=== PATIENT | male | born 1960 | race Caucasian/White ===

== ENCOUNTER 2017-07-18 10:42 | Inpatient (IN) | payer OTHER ==
[2017-07-18 10:56] VITALS: RESP 18
[2017-07-18] MEDS ORDERED: ONDANSETRON 4 MG/2 ML VIAL IVP STA (11:35)
[2017-07-18] MEDS ORDERED: PANTOPRAZOLE 40 MG/10 ML VIAL IVP STA (11:35)
[2017-07-18] MEDS ORDERED: SODIUM CHLORIDE 0.9% 500 ML IV STA (11:35)
--- NOTE | 2017-07-18 11:46 | ED ---
General Adult HPI - General Chief complaint: Abdominal Pain Stated complaint: abdominal pain, cold sweats, diarrhea Time Seen by Provider: 07/18/17 11:09 Source: patient, family, RN notes reviewed Mode of arrival: ambulatory Limitations: no limitations - History of Present Illness Initial comments: If complaint history of present illness this is a 57-year-old male to complaint of epigastric discomfort started several hours ago. Review worse. It goes from his stomach toward the back. Patient also has chronic back pain. Denies nausea vomiting or diarrhea. He did have 3 alcoholic drinks last night. Denies ever having had pancreatitis in the past. Denies past history of kidney stones. Denies chest pain. - Related Data Allergies Allergy/AdvReac Type Severity Reaction Status Date / Time No Known Allergies Allergy Verified 07/18/17 12:34 Review of Systems ROS Statement: Those systems with pertinent positive or pertinent negative responses have been documented in the HPI. review of systems no headache or visual acuity changes denies any chest pain or shortness of breath. He has epigastric pain. No nausea no vomiting no diarrhea. No neuro deficits. Past medical problems , Hcp-[id number] diabetes mellitus. Hypertension. No surgeries. Family history no cancers. Patient denies ALLERGIES. He does smoke and is encouraged to stop drink alcohol. He had 3 beers last night. ROS Other: All systems not noted in ROS Statement are negative. Past Medical History Past Medical History: Diabetes Mellitus, Hypertension History of Any Multi-Drug Resistant Organisms: None Reported Past Surgical History: No Surgical Hx Reported Past Psychological History: No Psychological Hx Reported Smoking Status: Current every day smoker Past Alcohol Use History: Occasional Past Drug Use History: None Reported General Exam - General Exam Comments Initial Comments: General: The patient is awake and alert,complaining of epigastric pain ongoing for several hours. No nausea ,no vomiting, no diarrhea. Eye: Pupils are equal, extra-ocular movements are intact; there is normal conjunctiva bilaterally. No signs of icterus. Ears, nose, mouth and throat: There are moist mucous membranes ns. Neck: The neck is supple, there is no tenderness . Cardiovascular: There is a regular rate and rhythm. No murmur, rub or gallop is appreciated. Respiratory: Lungs are clear to auscultation, respirations are non-labored, breath sounds are equal. No wheezes, stridor, rales, or rhonchi. Gastrointestinal: patient complains of epigastric area discomfort. No pain with deep palpation all around the abdomen mild discomfort with palpation of the epigastrium. No rebound or referred pain no guarding. Back: chronic low back pain, Musculoskeletal: no complaint of upper or lower extremity discomfort pain or problems. Neurological: no complaint of any neuro deficits none noted. Patient moved around without difficulty. Skin: no skin rashes Limitations: no limitations Course Vital Signs 07/18/17 10:53 Temperature 97.0 F L Pulse Rate 84 Respiratory 18 Rate Blood Pressure 133/64 O2 Sat by Pulse 98 Oximetry EKG Findings - EKG Comments: EKG Findings:: EKG was done and reviewed at 1135 showing sinus rhythm no acute ST elevation no ectopy no ischemic changes. Rate 67. Eye was 184 QRS [address] Pandey Medical Decision Making - Medical Decision Making Medical decision making; patient's here because of epigastric pain getting progressively worse over the past several hours. No nausea no vomiting or diarrhea. Labs show white count 16 hemoglobin 15 hematocrit of 47. INR 1.0.BUN 16 creatinine 0.8 GFR greater than 60. INR 1.0. Glucose 181. Amylase lipase within normal limits. X-ray of the abdomen was done and reviewed by radiologist his findings are there mildly distended loops of gaseous filled small bowel in the mid abdomen. There are multiple air-fluid levels. There are phleboliths within the pelvis. No free air is seen. Impression small bowel ileus versus early small bowel obstruction. As read by Dr. Kurtz After 1/2 L of fluids and medications patient still having cramping abdominal pain. The patient will have a CT the abdomen IV and oral contrast. CT the abdomen was done and reviewed by radiologist his final impression is clots in the left side of the colon making assessment of the bowel wall difficult. Correlate clinically to exclude colitis. Also abnormal small bowel loops in the mid to lower abdomen with adjacent mesenteric inflammation. No evidence of volvulus . ischemic changes possible. Also small metal hernia. Cholelithiasis. Renal cystic disease. Bilateral lysis at L5 with grade 1 spondylolisthesis of L5 on S1. Degenerative changes of his spine. As read by Dr. Kurtz Patient continues to have bilateral cramping. Patient be admitted to Dr. Campo with GI consultation. - Lab Data Result diagrams: 07/18/17 11:51 07/18/17 11:51 Lab Results 07/18/17 07/18/17 07/18/17 Range/Units 11:51 11:51 11:51 WBC 16.0 H (3.8-10.6) k/uL RBC 5.28 (4.30-5.90) m/uL Hgb 15.2 (13.0-17.5) gm/dL Hct 47.3 (39.0-53.0) % MCV 89.7 (80.0-100.0) fL MCH 28.9 (25.0-35.0) pg MCHC 32.2 (31.0-37.0) g/dL RDW 13.0 (11.5-15.5) % Plt Count 349 (150-450) k/uL Neutrophils % 83 % Lymphocytes % 10 % Monocytes % 4 % Eosinophils % 1 % Basophils % 1 % Neutrophils # 13.3 H (1.3-7.7) k/uL Lymphocytes # 1.7 (1.0-4.8) k/uL Monocytes # 0.6 (0-1.0) k/uL Eosinophils # 0.2 (0-0.7) k/uL Basophils # 0.1 (0-0.2) k/uL PT (9.0-12.0) sec INR (<1.2) Sodium 139 (137-145) mmol/L Potassium 4.8 (3.5-5.1) mmol/L Chloride 101 (98-107) mmol/L Carbon Dioxide 25 (22-30) mmol/L Anion Gap 13 mmol/L BUN 16 (9-20) mg/dL Creatinine 0.80 (0.66-1.25) mg/dL Est GFR (MDRD) Af Amer >60 (>60 ml/min/1.73 sqM) Est GFR (MDRD) Non-Af >60 (>60 ml/min/1.73 sqM) Glucose 181 H (74-99) mg/dL Plasma Lactic Acid Luis (0.7-2.0) mmol/L Calcium 10.0 (8.4-10.2) mg/dL Total Bilirubin 0.7 (0.2-1.3) mg/dL AST 27 (17-59) U/L ALT 45 (21-72) U/L Alkaline Phosphatase 118 (38-126) U/L Total Creatine Kinase 140 (55-170) U/L CK-MB (CK-2) 0.8 (0.0-2.4) ng/mL CK-MB (CK-2) Rel Index 0.6 Troponin I <0.012 (0.000-0.034) ng/mL Total Protein 8.1 (6.3-8.2) g/dL Albumin 4.7 (3.5-5.0) g/dL Amylase 55 (30-110) U/L Lipase 202 (23-300) U/L Urine Color Urine Appearance (Clear) Urine pH (5.0-8.0) Ur Specific Starke (1.001-1.035) Urine Protein (Negative) Urine Glucose (UA) (Negative) Urine Ketones (Negative) Urine Blood (Negative) Urine Nitrite (Negative) Urine Bilirubin (Negative) Urine Urobilinogen (<2.0) mg/dL Ur Leukocyte Esterase (Negative) 07/18/17 07/18/17 07/18/17 Range/Units 11:51 11:51 13:45 WBC (3.8-10.6) k/uL RBC (4.30-5.90) m/uL Hgb (13.0-17.5) gm/dL Hct (39.0-53.0) % MCV (80.0-100.0) fL MCH (25.0-35.0) pg MCHC (31.0-37.0) g/dL RDW (11.5-15.5) % Plt Count (150-450) k/uL Neutrophils % % Lymphocytes % % Monocytes % % Eosinophils % % Basophils % % Neutrophils # (1.3-7.7) k/uL Lymphocytes # (1.0-4.8) k/uL Monocytes # (0-1.0) k/uL Eosinophils # (0-0.7) k/uL Basophils # (0-0.2) k/uL PT 10.1 (9.0-12.0) sec INR 1.0 (<1.2) Sodium (137-145) mmol/L Potassium (3.5-5.1) mmol/L Chloride (98-107) mmol/L Carbon Dioxide (22-30) mmol/L Anion Gap mmol/L BUN (9-20) mg/dL Creatinine (0.66-1.25) mg/dL Est GFR (MDRD) Af Amer (>60 ml/min/1.73 sqM) Est GFR (MDRD) Non-Af (>60 ml/min/1.73 sqM) Glucose (74-99) mg/dL Plasma Lactic Acid Luis 1.3 (0.7-2.0) mmol/L Calcium (8.4-10.2) mg/dL Total Bilirubin (0.2-1.3) mg/dL AST (17-59) U/L ALT (21-72) U/L Alkaline Phosphatase (38-126) U/L Total Creatine Kinase (55-170) U/L CK-MB (CK-2) (0.0-2.4) ng/mL CK-MB (CK-2) Rel Index Troponin I (0.000-0.034) ng/mL Total Protein (6.3-8.2) g/dL Albumin (3.5-5.0) g/dL Amylase (30-110) U/L Lipase (23-300) U/L Urine Color Yellow Urine Appearance Clear (Clear) Urine pH 5.0 (5.0-8.0) Ur Specific Starke 1.037 H (1.001-1.035) Urine Protein Negative (Negative) Urine Glucose (UA) Negative (Negative) Urine Ketones 1+ H (Negative) Urine Blood Negative (Negative) Urine Nitrite Negative (Negative) Urine Bilirubin Negative (Negative) Urine Urobilinogen <2.0 (<2.0) mg/dL Ur Leukocyte Esterase Negative (Negative) Disposition Clinical Impression: Abdominal pain Disposition: ADMITTED IP TO THIS HOSP Condition: Undetermined Referrals: Don Paiz DO [Primary Care Provider] - 1-2 days
[2017-07-18] MEDS: HYDROmorphone 1 MG/ML 1 ML SYRINGE IVP STA ×2 (11:58→13:07)
[2017-07-18 12:15] LABS: Basophils # (A) 0.1 k/uL (0-0.2); Basophils % (A) 1 %; Eosinophils # (A) 0.2 k/uL (0-0.7); Eosinophils % (A) 1 %; HCT 47.3 % (39.0-53.0); HGB 15.2 gm/dL (13.0-17.5); Lymphocytes # (A) 1.7 k/uL (1.0-4.8); Lymphocytes % (A) 10 %; MCH 28.9 pg (25.0-35.0); MCHC 32.2 g/dL (31.0-37.0); MCV 89.7 fL (80.0-100.0); Mean Platelet Volume 6.9; Monocytes # (A) 0.6 k/uL (0-1.0); Monocytes % (A) 4 %; Neutrophils # (A) 13.3 k/uL (1.3-7.7); Neutrophils % (A) 83 %; Platelet Count 349 k/uL (150-450); RBC 5.28 m/uL (4.30-5.90)
[2017-07-18 12:17] LABS: Prothrombin Time 10.1 sec (9.0-12.0)
[2017-07-18 12:18] LABS: ALT 45 U/L (21-72); AST 27 U/L (17-59); Albumin 4.7 g/dL (3.5-5.0); Alkaline Phosphatase 118 U/L (38-126); Amylase 55 U/L (30-110); Anion Gap 13 mmol/L; Blood Urea Nitrogen 16 mg/dL (9-20); Carbon Dioxide 25 mmol/L (22-30); Chloride 101 mmol/L (98-107); Glucose 181 mg/dL (74-99); Lipase 202 U/L (23-300); Potassium 4.8 mmol/L (3.5-5.1); Sodium 139 mmol/L (137-145); Total Bilirubin 0.7 mg/dL (0.2-1.3); Total Protein 8.1 g/dL (6.3-8.2)
--- NOTE | 2017-07-18 12:18 | XR ---
EXAMINATION TYPE: XR abdomen 2V , 2 VIEWS DATE OF EXAM ORDERED: 07/18/2017 HISTORY: abdominal pain. COMPARISON: None. FINDINGS: The lung bases are clear. There are mildly distended loops of gaseous filled small bowel in the midabdomen. There are multiple air-fluid levels. There are phleboliths within the pelvis. No free air is seen. IMPRESSION: SMALL BOWEL ILEUS VERSUS EARLY SMALL BOWEL OBSTRUCTION.
[2017-07-18] MEDS ORDERED: RX INFO: IV CONTRAST WAS GIVEN 1 EACH MISC MISCELLANE PRN (12:29)
[2017-07-18] MEDS ORDERED: IOHEXOL 350 MG/ML 25 ML BOTTLE (ORAL USE) PO PRN (12:29)
[2017-07-18] MEDS ORDERED: SODIUM CHLORIDE 0.9% 1,000 ML IV STA (12:36)
[2017-07-18 12:41] LABS: Creatine Kinase 140 U/L (55-170)
[2017-07-18 12:54] LABS: Creatine Kinase MB 0.8 ng/mL (0.0-2.4); Troponin I <0.012 ng/mL (0.000-0.034)
--- NOTE | 2017-07-18 13:27 | CT ---
EXAMINATION TYPE: CT abdomen pelvis w con DATE OF EXAM: 07/18/2017 REFERENCE: NONE HISTORY: epigastric pain HISTORY: epigastric pain REFERENCE: NONE CT DLP: 858.8 mGy Automated exposure control for dose reduction was used. TECHNIQUE: Helical acquisition through the abdomen and pelvis was obtained following the oral ingesti on of without Oral Contrast and following intravenous administration of 100 mL of Omnipaque 300. The data was reformatted in axial, coronal and sagittal projections. FINDINGS: Visualized portions of the lungs are clear. There is no pleural or pericardial fluid. The heart is not enlarged. There is a small hiatal hernia. There is a 1.3 cm gallstone within the gallbladder. The liver and spleen are normal. Both adrenal glands are normal. The pancreas is unremarkable. There is a 1.7 cm left renal cyst and a smaller 1.1 cm right renal cyst. There is a third cyst in the lower pole of the left kidney measuring approximately centimeter. There is mild atheromatous calcification of the visualized arterial tree. There is no significant ret roperitoneal, iliac or inguinal adenopathy. The bladder is unremarkable. The left side of the colon is collapsed. This makes assessment wall thickness difficult. The appendix is normal. There are several loops of small bowel in the midabdomen which are distended with fluid. There is mes enteric inflammation in this location. There is no twisting of the mesentery. There is no free fluid and no free air. There is degenerative disc disease and vacuum phenomena present at L4-5 and L5-S1. There is a bilater al lysis at L5 with a grade 1 spondylolisthesis of L5 on S1. There is mild facet arthropathy in the l ower lumbar facets. IMPRESSION: 1. COLLAPSE OF THE LEFT SIDE OF THE COLON MAKING ASSESSMENT OF BOWEL WALL DIFFICULT. PLEASE ASSESS CL INICALLY TO EXCLUDE COLITIS. 2. ABNORMAL SMALL BOWEL LOOPS IN THE MID TO LOWER ABDOMEN WITH ADJACENT MESENTERIC INFLAMMATION. I DO NOT SEE EVIDENCE OF VOLVULUS. ISCHEMIC CHANGE IS POSSIBLE. 3. SMALL HIATAL HERNIA. 4. CHOLELITHIASIS. 5. RENAL CYSTIC DISEASE. 6. BILATERAL LYSIS AT L5 WITH A GRADE 1 SPONDYLOLISTHESIS OF L5 ON S1. 7. DEGENERATIVE CHANGE WITHIN THE SPINE.
[2017-07-18 13:56] LABS: Appearance,Urine Clear (Clear); Bilirubin,Urine Negative (Negative); Blood,Urine Negative (Negative); Color,Urine Yellow; Glucose,Urine (UA) Negative (Negative); Ketones,Urine 1+ (Negative); Leukocyte Esterase,Urine Negative (Negative); Nitrite,Urine Negative (Negative); Protein,Urine Negative (Negative); Specific Gravity,Urine 1.037 (1.001-1.035); Urobilinogen,Urine <2.0 mg/dL (<2.0)
[2017-07-18] MEDS ORDERED: HYDROmorphone 2 MG/ML 1 ML SYRINGE IVP PRN (14:48)
[2017-07-18] MEDS ORDERED: NALOXONE 0.4 MG/ML 1 ML VIAL IV PRN (14:48)
[2017-07-18] MEDS ORDERED: ONDANSETRON 4 MG/2 ML VIAL IVP PRN (14:48)
[2017-07-18] MEDS ORDERED: SODIUM CHLORIDE 0.9% 1,000 ML IV SCH (15:00)
[2017-07-18 16:20] VITALS: BMI 31.3
[2017-07-18 17:19] VITALS: BP 122/72; PULSE 88; TEMP 98
--- NOTE | 2017-07-18 19:02 | HP ---
HISTORY AND PHYSICAL HISTORY AND PHYSICAL AND DISCHARGE SUMMARY: DATE OF SERVICE: 07/18/2017 CHIEF COMPLAINT: Abdominal pain. HISTORY OF PRESENT ILLNESS: This 57-year-old gentleman with a past medical history of multiple medical problems, including diabetes mellitus, hypertension, history of nicotine dependence, being followed by Dr. Paiz and the [facility] in [place] was admitted with abdominal pain. This morning when the patient woke up, there was pain in the epigastrium. Subsequently, pain went down and the patient came to [facility] and a CT scan of the abdomen and pelvis was done which showed multiple abnormalities, including possible colitis, abnormal small bowel loops and small hiatal hernia, cholelithiasis and bilateral and DJD of spine. The patient is extremely keen on going home at this time. The patient said the pain improved significantly. There is no history of fever, rigors. No history of headache, loss of consciousness, seizures. White count is elevated to 16. PAST MEDICAL HISTORY: History of diabetes mellitus, hypertension, DJD. MEDICATIONS: None. ALLERGIES: None. FAMILY HISTORY: History of myocardial infarction and renal disease in the family. SOCIAL HISTORY: History of smoking and weekend alcohol. REVIEW OF SYSTEMS: ENT: No diminished hearing, diminished vision. CARDIOVASCULAR: No angina, palpitations. RESPIRATORY: No cough. GI: As mentioned earlier. : No dysuria. NERVOUS: No numbness or weakness. ALLERGY/IMMUNOLOGY: No asthma or hay fever. MUSCULOSKELETAL: As mentioned earlier. HEMATOLOGY/ONCOLOGY: No history of anemia. ENDOCRINE: As mentioned earlier. CONSTITUTIONAL: As mentioned earlier. DERMATOLOGY: Negative. RHEUMATOLOGY: Negative. PSYCHIATRY: As mentioned earlier. PHYSICAL EXAM: Patient is alert, oriented x3. The pulse is 88, blood pressure is 120/72, respirations 18, temperature 98 degrees, pulse ox 94% on room air. HEENT: Conjunctivae normal. Oral mucosa moist. NECK: No jugular venous distention. No carotid bruits. No lymph node enlargement. CARDIOVASCULAR: S1, S2 muffled. RESPIRATORY: Breath sounds diminished in the bases. A few scattered rhonchi. No crackles. ABDOMEN: Soft. No tenderness. No guarding. No rigidity. No mass palpable. Bowel sounds present. No bruit. LEGS: No edema. No swelling. NERVOUS SYSTEM: Higher functions as mentioned earlier. Moves all 4 limbs. No focal deficits LYMPHATIC: No lymphadenopathy in neck or axillae. SKIN: No ulcer, rash or bleeding. LABS: WBC 16. Other labs are noted. ASSESSMENT: 1. Abdominal pain, possible mild colitis. 2. Possible acute gastroenteritis or gastritis. 3. History of diabetes mellitus type 2. 4. Hypertension. 5. History of degenerative joint disease. 6. History of nicotine dependence. 7. History of EtOH. 8. Asymptomatic cholelithiasis. RECOMMENDATIONS AND DISCUSSION: In this 57-year-old gentleman who presented with multiple complex medical issues , recommend to continue current medical management, continue symptomatic treatment. Otherwise, the patient is extremely keen on going home. I would recommend a short course of antibiotics and continue to follow up in the outpatient setting with primary physician as well as either Surgery or gastroenterology. The patient is stable at this time. Otherwise, abnormal CT scan to be followed up in the outpatient setting with regard to the multiple abnormalities noted. Otherwise, currently patient is medically stable and as mentioned earlier, patient is extremely keen on going home and I would recommend following at discharge. DIET: Soft. PLAN: I told him to follow up with Dr. Paiz in 1-2 days. Medications will be Tylenol p.r.n. for pain, Levaquin 500 mg p.o. daily for 5 days, Protonix 40 mg p.o. daily. Will also check for influenza, which came back as negative. MMKWANL / BISMARKN: [id number] / MTDD
[2017-07-19] MEDS ORDERED: PANTOPRAZOLE 40 MG/10 ML VIAL IV SCH (09:00)
== END 2017-07-18 20:01 | disposition home or self-care (01) | DRG 392 ==
LOC: EC 10:42 → 5MS5E 14:48
PROVIDERS: ADMIT Hospitalist; ATTEND Hospitalist
DX: K52.9 Noninfective gastroenteritis and colitis, unspecified (principal); Q61.9 Cystic kidney disease, unspecified; E11.9 Type 2 diabetes mellitus without complications; K80.20 Calculus of gallbladder without cholecystitis without obstruction; F17.200 Nicotine dependence, unspecified, uncomplicated; G89.29 Other chronic pain; I10 Essential (primary) hypertension; M19.90 Unspecified osteoarthritis, unspecified site; M43.17 Spondylolisthesis, lumbosacral region; I87.8 Other specified disorders of veins; R10.13 Epigastric pain; Z82.49 Family history of ischemic heart disease and other diseases of the circulatory system
CPT/HCPCS: 36415; 74019; 74177; 80053; 81003; 82150; 82550; 82553; 83605; 83690; 84484; 85025; 85610; 87086; 87502; 93005; 96360; 96361; 96374; 96375; 99285